=== PATIENT | female | born 1995 | race Caucasian/White ===

== ENCOUNTER 2020-04-22 02:57 | Emergency (ER) | payer SELFPAY, MEDICAID ==
[~2020-04-22] VITALS: Ht 167.6 cm; Wt 77.1 kg
[~2020-04-22 02:57] MED LIST: NKM
[2020-04-22 02:58] VITALS: BP 134/85
--- NOTE | 2020-04-22 02:59 | NUR ---
ED Nurse Note: Pt is in [facility] custody, with [place] Juan [id number], Pt has stable vital signs on RA as docuemented. Pt walks with a steady gait. Pt has a history of athsma, DM, Hep C.breathing is even and unlabored. Pt is afebrile.
--- NOTE | 2020-04-22 03:12 | Emergency Room Report ---
History of Present Illness General Chief Complaint: Medical Clearance Source: Patient, Law Enforcement Present Illness HPI 25-year-old female with no past medical history. She presents with chief complaint of medical clearance. 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 She never had follow-up. She has no complaint. She is under arrest and brought in because of possible diabetes. Allergies: Coded Allergies: No Known Allergies (Unverified , 04/22/20) COVID-19 Screening Contact w/high risk pt: No Experienced COVID-19 symptoms?: No COVID-19 Testing performed CORRECTIONAL AGENCY DIRECTOR: No Patient History Past Medical History: see triage record, old chart reviewed Past Surgical History: none Pertinent Family History: none Social History: Reports: smoking Last Menstrual Period: 03/2020 Now: No Immunizations: other Reviewed Nursing Documentation: PMH: Agreed; PSxH: Agreed Nursing Documentation-PMH Past Medical History: No History, Except For Hx Asthma: Yes Hx Diabetes: Yes Review of Systems Eye: Denies: eye pain, blurred vision ENT: Denies: ear pain, nose congestion, throat swelling Respiratory: Denies: cough, shortness of breath Cardiovascular: Denies: chest pain, palpitations Gastrointestinal: Denies: abdominal pain, diarrhea, nausea, vomiting Musculoskeletal: Denies: back pain, joint pain Skin: Denies: rash Neurological: Denies: headache, numbness Endocrine: Denies: increased thirst, increased urine Hematologic/Lymphatic: Denies: easy bruising All Other Systems: negative except mentioned in HPI Physical Exam Vital Signs Date Time Temp Pulse Resp B/P (MAP) Pulse Ox O2 Delivery O2 Flow Rate FiO2 04/22/20 02:58 98.1 92 18 134/85 (101) 98 Room Air Vitals normal Sp02 EP Interpretation: reviewed, normal General Appearance: well appearing, no apparent distress, alert Head: normocephalic, atraumatic Eyes: bilateral eye PERRL, bilateral eye EOMI ENT: hearing grossly normal, normal pharynx Neck: full range of motion, supple, no meningismus Respiratory: chest non-tender, lungs clear, normal breath sounds Cardiovascular #1: regular rate, rhythm, no murmur Gastrointestinal: normal bowel sounds, non tender, no mass, no organomegaly, no bruit, non-distended Musculoskeletal: back normal, normal range of motion, gait/station normal Psychiatric: mood/affect normal Medical Decision Making Diagnostic Impression: Primary Impression: Examination for medicolegal reason ER Course Here for medical clearance. No evidence for glycemia here. Glucose normal. She has no other complaint. She is medically clear for booking. Last Vital Signs Date Time Temp Pulse Resp B/P (MAP) Pulse Ox O2 Delivery O2 Flow Rate FiO2 04/22/20 02:58 98.1 92 18 134/85 (101) 98 Room Air Status: unchanged Disposition: LAW ENFORCEMENT IN CUST Condition: Stable Additional Instructions: Follow-up with your doctor as needed in 7 days. Return if worse. Ronni English MD Apr 22, 2020 03:12
[2020-04-22 03:16] VITALS: BP 124/81
--- NOTE | 2020-04-22 03:19 | NUR ---
ER DISCHARGE NOTE: Patient is cleared to be discharged per ERMD, pt is aox4, on room air, with stable vital signs. [facility]ASD was given dc and prescription instructions, pt was able to verbalize understanding, pt id band removed . pt is able to ambulate with steady gait. pt took all belongings. [facility] escorted pt.
== END 2020-04-22 03:30 ==
LOC: EMR 03:18
DX: Z02.89 Encounter for other administrative examinations (principal); J45.909 Unspecified asthma, uncomplicated; E11.9 Type 2 diabetes mellitus without complications
CPT/HCPCS: 99281